=== PATIENT | male | born 1985 | race Caucasian/White ===

== ENCOUNTER 2017-07-13 08:23 | Inpatient (IN) | payer MEDICAID, OTHER ==
[~2017-07-13] VITALS: Ht 175.3 cm; Wt 83.0 kg
[2017-07-13 09:39] LABS: Urine WBC None Seen /hpf (0 - 3)
[2017-07-13 09:53] LABS: Basophils # (auto) 0.1 uL; Basophils % (auto) 0.3 % (0.0-2.0); Eosinophils # (auto) 0 uL; Eosinophils % (auto) 0.2 % (0.0-7.0); Hemoglobin 15.7 g/dL (13.5-17.5); Lymphocytes % (auto) 5.6 % (10.0-50.0); Mean Corpuscular Hemoglobin 30.6 pg (28.0-32.0); Mean Corpuscular Hgb Conc. 33.5 g/dL (32.0-36.0); Mean Corpuscular Volume 91.5 fL (80.0-100.0); Monocytes # (auto) 0.8 uL; Monocytes % (auto) 4.7 % (0.0-12.0); Neutrophils # (auto) 15.4 uL; Neutrophils % (auto) 89.2 % (37.0-80.0); Nucleated Red Blood Cells % 0.1 %; Platelet Count (auto) 250 10^3/uL (140-450); Red Blood Cells 5.13 10^6/uL (4.5-5.90); Red Cell Distribution Width 14.4 % (11.8-14.3); White Blood Cell 17.3 10^3/uL (4.4-10.8)
[2017-07-13] MEDS ORDERED: SODIUM CHLORIDE 0.9% 1,000 ML IVB ONE (09:57)
[2017-07-13] MEDS ORDERED: MORPHINE SULFATE 4 MG/ML SYR/VIAL IV PRN ×4 (10:00→13:30)
[2017-07-13] MEDS ORDERED: DONNATAL 5ml ORAL Elix (BELLADONNA ALK-PHENOBARB) PO ONE (10:00)
[2017-07-13] MEDS ORDERED: PROMETHAZINE HCL 25 MG/ML 1ML IV PRN ×2 (10:00→12:30)
[2017-07-13] MEDS ORDERED: FAMOTIDINE 20 MG TAB PO ONE (10:00)
[2017-07-13] MEDS ORDERED: ALUM & MAG HYDROX-SIMETH LIQ(MAALOX) 30 ML PO ONE (10:00)
[2017-07-13 10:06] LABS: Urine Amorphous Crystal FEW /hpf (None Seen); Urine Bacteria NONE SEEN /hpf (None Seen); Urine Blood Negative /uL (Negative); Urine Mucus FEW (None Seen); Urine Specific Gravity 1.039 (1.001-1.035)
[2017-07-13 10:10] LABS: Albumin 3.9 g/dL (3.4-5.0); BUN/Creatinine Ratio 11.2; Bilirubin, Total 0.7 mg/dL (0.2-1.0); Calcium 10.2 mg/dL (8.5-10.1); Potassium 3.3 mmol/L (3.5-5.1); Total Protein 8.7 g/dL (6.4-8.2)
[2017-07-13] MEDS: THIAMINE INJ 100 MG, MULTIPLE VITAMIN 10 ML, FOLIC ACID 1 MG, MAGNESIUM SULF SDV 50% 8 ... IV SCH ×5 (11:01)
[2017-07-13] MEDS ORDERED: POTASSIUM CHL 10% (20 MEQ/15ML) 15ml ORAL SOLN PO ONE (12:00)
[2017-07-13 12:09] LABS: Amphetamine Screen, Urine NEGATIVE (NEGATIVE); Barbiturate Scree,Urine NEGATIVE (NEGATIVE); Benzodiazephine Screen, Urine NEGATIVE (NEGATIVE); Cannabinoid Screen, Urine POSITIVE (NEGATIVE); Cocaine Screen, Urine NEGATIVE (NEGATIVE); Opiate Scree,Urine NEGATIVE (NEGATIVE); Phencyclidine Screen, Urine NEGATIVE (NEGATIVE)
[2017-07-13] MEDS ORDERED: MEPERIDINE HCL (50 MG/ML) 1 ML VIAL IV PRN (12:30)
[2017-07-13] MEDS ORDERED: THIAMINE 100mg/ml INJ (200mg/2ml VIAL) IV ONE (13:30)
[2017-07-13] MEDS ORDERED: DEXTROSE (50%) 50ML SYRG IV PRN (13:30)
[2017-07-13] MEDS ORDERED: NITROGLYCERIN 0.4 MG SL TAB SL PRN (13:30)
[2017-07-13] MEDS: SODIUM CHLORIDE 0.9% 1,000 ML IV SCH ×3 (13:40→23:46)
[2017-07-13] MEDS: HYDROmorphone HCL 2 MG/ML VL IV PRN ×3 (13:55→21:47)
[2017-07-13] MEDS: metroNIDAZOLE 500MG/100ML 100 ML IV SCH ×2 (14:24→21:47)
[2017-07-13] MEDS: POTASSIUM CHL 20MEQ/100ML 100 ML IV SCH ×3 (15:09→18:32)
[2017-07-13] MEDS: LORazepam 2MG/ML-1ML VIAL IV PRN ×2 (15:34→18:32)
[2017-07-13] MEDS: PROMETHAZINE HCL 25 MG/ML 1ML IV PRN ×2 (17:47→21:48)
[2017-07-13] MEDS: InsuLIN REG 1unit/0.01ml Soln (100units/ml) SC SCH ×2 (18:00→23:45)
[2017-07-13 18:20] VITALS: BP 146/69
[2017-07-13] MEDS: ACCU-CHEK COMFORT CURVE STRIP VI SCH ×2 (18:32→23:45)
[2017-07-13 20:57] VITALS: BP 146/69
[2017-07-13] MEDS ORDERED: METH10T PO (20:58)
[2017-07-13] MEDS: FAMOTIDINE (10MG/ML) 2ML VL IV SCH (21:47)
[2017-07-14] MEDS: HYDROmorphone HCL 2 MG/ML VL IV PRN ×3 (02:46→20:49)
[2017-07-14 05:06] VITALS: BP 144/91
[2017-07-14] MEDS: metroNIDAZOLE 500MG/100ML 100 ML IV SCH (05:35)
[2017-07-14] MEDS: InsuLIN REG 1unit/0.01ml Soln (100units/ml) SC SCH ×4 (05:37→23:32)
[2017-07-14] MEDS: ACCU-CHEK COMFORT CURVE STRIP VI SCH ×4 (05:37→23:32)
[2017-07-14 06:09] LABS: Basophils # (auto) 0 uL; Basophils % (auto) 0.1 % (0.0-2.0); Eosinophils # (auto) 0.1 uL; Eosinophils % (auto) 0.7 % (0.0-7.0); Hematocrit 40.9 % (41.0-53.0); Hemoglobin 13.9 g/dL (13.5-17.5); Lymphocytes # (auto) 1.1 uL; Lymphocytes % (auto) 10.9 % (10.0-50.0); Mean Corpuscular Hemoglobin 31.8 pg (28.0-32.0); Mean Corpuscular Volume 93.3 fL (80.0-100.0); Monocytes # (auto) 0.7 uL; Monocytes % (auto) 7.6 % (0.0-12.0); Neutrophils # (auto) 7.8 uL; Neutrophils % (auto) 80.7 % (37.0-80.0); Nucleated Red Blood Cells % 0.1 %; Platelet Count (auto) 141 10^3/uL (140-450); Red Blood Cells 4.38 10^6/uL (4.5-5.90); Red Cell Distribution Width 15.1 % (11.8-14.3); White Blood Cell 9.7 10^3/uL (4.4-10.8)
[2017-07-14] MEDS: SODIUM CHLORIDE 0.9% 1,000 ML IV SCH ×3 (06:18→22:38)
[2017-07-14 06:20] LABS: Albumin 2.9 g/dL (3.4-5.0); BUN/Creatinine Ratio 9.6; Bilirubin, Total 0.7 mg/dL (0.2-1.0); Calcium 8.3 mg/dL (8.5-10.1); Potassium 3.9 mmol/L (3.5-5.1); Total Protein 6.6 g/dL (6.4-8.2)
[2017-07-14 07:43] VITALS: BP 152/80
[2017-07-14] MEDS ORDERED: cefTRIAXone 1GM/10ml IVPUSH 10 ML IV SCH (09:00)
[2017-07-14] MEDS: THIAMINE 100mg/ml INJ (200mg/2ml VIAL) IV SCH (09:25)
[2017-07-14] MEDS: FAMOTIDINE (10MG/ML) 2ML VL IV SCH ×2 (09:26→21:45)
[2017-07-14] MEDS: PARoxetine 20 MG TAB PO SCH (11:21)
[2017-07-14] MEDS: chlordiazePOXIDE HCL 25 MG CAP PO SCH ×2 (11:21→21:45)
[2017-07-14 11:24] VITALS: BP 158/90
[2017-07-14] MEDS: METHADONE HCL 10 MG TAB PO SCH (12:06)
[2017-07-14] MEDS: THIAMINE INJ 100 MG, MULTIPLE VITAMIN 10 ML, FOLIC ACID 1 MG, MAGNESIUM SULF SDV 50% 8 ... IV SCH ×5 (12:06)
[2017-07-14] MEDS ORDERED: ANGIOMAX 250 MG VIAL IV ONE (15:19)
[2017-07-14] MEDS ORDERED: fentaNYL CITRATE 100 MCG/2 ML VL ONE (15:19)
[2017-07-14] MEDS ORDERED: IOHEXOL 350 MG/ML 100ML IJ ONE (15:20)
[2017-07-14] MEDS ORDERED: MIDAZOLAM HCL 1MG/1ML-2 ML VIAL ONE (15:20)
[2017-07-14] MEDS ORDERED: LIDOCAINE 2%HCL (LOCAL ANESTH.) INJ 20ML MDV ONE (15:20)
[2017-07-14 17:26] VITALS: BP 154/92
[2017-07-14 21:46] VITALS: BP 168/92
[2017-07-14 22:36] VITALS: BP 137/92
[2017-07-15] MEDS: SODIUM CHLORIDE 0.9% 1,000 ML IV SCH ×3 (04:33→18:38)
[2017-07-15 04:51] VITALS: BP 154/85
[2017-07-15] MEDS: InsuLIN REG 1unit/0.01ml Soln (100units/ml) SC SCH ×3 (05:07→18:00)
[2017-07-15] MEDS: ACCU-CHEK COMFORT CURVE STRIP VI SCH ×3 (05:07→18:00)
[2017-07-15 06:43] LABS: Basophils # (auto) 0 uL; Basophils % (auto) 0.5 % (0.0-2.0); Eosinophils # (auto) 0.2 uL; Eosinophils % (auto) 1.9 % (0.0-7.0); Hemoglobin 13.3 g/dL (13.5-17.5); Lymphocytes # (auto) 1.5 uL; Mean Corpuscular Hemoglobin 31.8 pg (28.0-32.0); Mean Corpuscular Volume 93.6 fL (80.0-100.0); Monocytes # (auto) 0.8 uL; Monocytes % (auto) 8.9 % (0.0-12.0); Neutrophils # (auto) 6.8 uL; Neutrophils % (auto) 72.7 % (37.0-80.0); Nucleated Red Blood Cells % 0.1 %; Platelet Count (auto) 133 10^3/uL (140-450); Red Blood Cells 4.17 10^6/uL (4.5-5.90); Red Cell Distribution Width 14.6 % (11.8-14.3); White Blood Cell 9.3 10^3/uL (4.4-10.8)
[2017-07-15 07:01] LABS: Potassium 3.6 mmol/L (3.5-5.1)
[2017-07-15 07:17] LABS: BUN/Creatinine Ratio 10.3; Calcium 8.5 mg/dL (8.5-10.1)
[2017-07-15 08:00] VITALS: BP 165/86
[2017-07-15] MEDS: HYDROmorphone HCL 2 MG/ML VL IV PRN (08:44)
[2017-07-15 08:51] VITALS: BP 165/86
[2017-07-15] MEDS: chlordiazePOXIDE HCL 25 MG CAP PO SCH ×2 (10:13→21:36)
[2017-07-15] MEDS: METHADONE HCL 10 MG TAB PO SCH (10:13)
[2017-07-15] MEDS: PARoxetine 20 MG TAB PO SCH (10:14)
[2017-07-15] MEDS: THIAMINE 100mg/ml INJ (200mg/2ml VIAL) IV SCH (10:19)
[2017-07-15] MEDS: FAMOTIDINE (10MG/ML) 2ML VL IV SCH ×2 (10:19→21:36)
[2017-07-15] MEDS: THIAMINE INJ 100 MG, MULTIPLE VITAMIN 10 ML, FOLIC ACID 1 MG, MAGNESIUM SULF SDV 50% 8 ... IV SCH ×5 (13:02)
[2017-07-15] MEDS ORDERED: chlordiazePOXIDE HCL 25 MG CAP PO SCH (14:00)
[2017-07-15 16:56] VITALS: BP 128/70
[2017-07-15] MEDS ORDERED: MORPHINE SULFATE 8mg/ml INJ SDV IV PRN ×2 (17:00)
[2017-07-15 21:45] VITALS: BP 147/85
[2017-07-16] VITALS (8 sets, daily range): BP systolic 101–151; BP diastolic 63–98
[2017-07-16] MEDS: SODIUM CHLORIDE 0.9% 1,000 ML IV SCH ×4 (00:22→21:02)
[2017-07-16] MEDS: ACCU-CHEK COMFORT CURVE STRIP VI SCH ×4 (00:22→17:29)
[2017-07-16] MEDS: chlordiazePOXIDE HCL 25 MG CAP PO SCH ×3 (06:00→22:10)
[2017-07-16] MEDS: InsuLIN REG 1unit/0.01ml Soln (100units/ml) SC SCH ×4 (06:00→17:30)
[2017-07-16 06:01] LABS: Basophils # (auto) 0 uL; Basophils % (auto) 0.6 % (0.0-2.0); Eosinophils # (auto) 0.2 uL; Eosinophils % (auto) 3.4 % (0.0-7.0); Hematocrit 35.8 % (41.0-53.0); Hemoglobin 12.1 g/dL (13.5-17.5); Lymphocytes # (auto) 1.3 uL; Lymphocytes % (auto) 21.7 % (10.0-50.0); Mean Corpuscular Hemoglobin 31.6 pg (28.0-32.0); Mean Corpuscular Hgb Conc. 33.6 g/dL (32.0-36.0); Monocytes # (auto) 0.6 uL; Monocytes % (auto) 9.1 % (0.0-12.0); Neutrophils % (auto) 65.2 % (37.0-80.0); Nucleated Red Blood Cells % 0.1 %; Platelet Count (auto) 126 10^3/uL (140-450); Red Blood Cells 3.81 10^6/uL (4.5-5.90); Red Cell Distribution Width 14.9 % (11.8-14.3); White Blood Cell 6.2 10^3/uL (4.4-10.8)
[2017-07-16 06:31] LABS: Calcium 8.3 mg/dL (8.5-10.1); Potassium 3.4 mmol/L (3.5-5.1)
[2017-07-16] MEDS ORDERED: POTASSIUM CHL 20 Meq TABLET PO ONE (08:30)
[2017-07-16] MEDS: METHADONE HCL 10 MG TAB PO SCH (09:42)
[2017-07-16] MEDS: PARoxetine 20 MG TAB PO SCH (09:42)
[2017-07-16] MEDS: THIAMINE 100mg/ml INJ (200mg/2ml VIAL) IV SCH (09:43)
[2017-07-16] MEDS: FAMOTIDINE (10MG/ML) 2ML VL IV SCH ×2 (09:43→22:10)
[2017-07-16] MEDS: THIAMINE INJ 100 MG, MULTIPLE VITAMIN 10 ML, FOLIC ACID 1 MG, MAGNESIUM SULF SDV 50% 8 ... IV SCH ×5 (12:35)
[2017-07-17] VITALS (7 sets, daily range): BP systolic 136–158; BP diastolic 74–99
[2017-07-17] MEDS: ACCU-CHEK COMFORT CURVE STRIP VI SCH ×4 (00:14→17:14)
[2017-07-17] MEDS: SODIUM CHLORIDE 0.9% 1,000 ML IV SCH ×4 (04:13→22:44)
[2017-07-17] MEDS: InsuLIN REG 1unit/0.01ml Soln (100units/ml) SC SCH ×4 (06:00→17:14)
[2017-07-17 06:03] LABS: Basophils # (auto) 0.1 uL; Basophils % (auto) 0.9 % (0.0-2.0); Eosinophils # (auto) 0.2 uL; Eosinophils % (auto) 3.6 % (0.0-7.0); Hematocrit 38.8 % (41.0-53.0); Hemoglobin 12.8 g/dL (13.5-17.5); Lymphocytes # (auto) 1.2 uL; Lymphocytes % (auto) 21.3 % (10.0-50.0); Mean Corpuscular Hemoglobin 30.9 pg (28.0-32.0); Mean Corpuscular Hgb Conc. 32.9 g/dL (32.0-36.0); Mean Corpuscular Volume 93.9 fL (80.0-100.0); Monocytes # (auto) 0.5 uL; Monocytes % (auto) 9.1 % (0.0-12.0); Neutrophils # (auto) 3.8 uL; Neutrophils % (auto) 65.1 % (37.0-80.0); Nucleated Red Blood Cells % 0.1 %; Platelet Count (auto) 168 10^3/uL (140-450); Red Blood Cells 4.14 10^6/uL (4.5-5.90); Red Cell Distribution Width 14.8 % (11.8-14.3); White Blood Cell 5.9 10^3/uL (4.4-10.8)
[2017-07-17 06:23] LABS: BUN/Creatinine Ratio 5.1; Calcium 8.7 mg/dL (8.5-10.1); Potassium 3.8 mmol/L (3.5-5.1)
[2017-07-17 06:51] LABS: Albumin 2.9 g/dL (3.4-5.0); Bilirubin, Direct 0.2 mg/dL (0-0.2); Bilirubin, Total 0.4 mg/dL (0.2-1.0); Magnesium 2.4 mg/dL (1.6-2.6); Total Protein 6.9 g/dL (6.4-8.2)
[2017-07-17] MEDS: FAMOTIDINE (10MG/ML) 2ML VL IV SCH ×2 (09:24→22:44)
[2017-07-17] MEDS: THIAMINE 100mg/ml INJ (200mg/2ml VIAL) IV SCH (09:24)
[2017-07-17] MEDS: PARoxetine 20 MG TAB PO SCH (09:25)
[2017-07-17] MEDS: chlordiazePOXIDE HCL 25 MG CAP PO SCH (09:25)
[2017-07-17] MEDS: METHADONE HCL 10 MG TAB PO SCH (09:26)
[2017-07-17] MEDS: THIAMINE INJ 100 MG, MULTIPLE VITAMIN 10 ML, FOLIC ACID 1 MG, MAGNESIUM SULF SDV 50% 8 ... IV SCH ×5 (11:44)
[2017-07-17] MEDS: LORazepam 2MG/ML-1ML VIAL IV PRN (22:10)
[2017-07-17] MEDS: HYDROmorphone HCL 2 MG/ML VL IV PRN (22:46)
[2017-07-18 04:57] VITALS: BP 145/81
[2017-07-18 05:53] LABS: Basophils # (auto) 0 uL; Basophils % (auto) 0.8 % (0.0-2.0); Eosinophils # (auto) 0.2 uL; Eosinophils % (auto) 3.7 % (0.0-7.0); Hematocrit 36.1 % (41.0-53.0); Hemoglobin 12.3 g/dL (13.5-17.5); Lymphocytes % (auto) 21.2 % (10.0-50.0); Mean Corpuscular Hemoglobin 31.8 pg (28.0-32.0); Mean Corpuscular Hgb Conc. 34.1 g/dL (32.0-36.0); Mean Corpuscular Volume 93.3 fL (80.0-100.0); Monocytes # (auto) 0.6 uL; Monocytes % (auto) 12.7 % (0.0-12.0); Neutrophils % (auto) 61.6 % (37.0-80.0); Platelet Count (auto) 185 10^3/uL (140-450); Red Blood Cells 3.88 10^6/uL (4.5-5.90); Red Cell Distribution Width 14.5 % (11.8-14.3); White Blood Cell 4.9 10^3/uL (4.4-10.8)
[2017-07-18] MEDS: InsuLIN REG 1unit/0.01ml Soln (100units/ml) SC SCH ×2 (06:00)
[2017-07-18] MEDS: ACCU-CHEK COMFORT CURVE STRIP VI SCH ×2 (06:00)
[2017-07-18 06:13] LABS: BUN/Creatinine Ratio 5.6; Calcium 8.7 mg/dL (8.5-10.1); Potassium 4.1 mmol/L (3.5-5.1)
[2017-07-18] MEDS: SODIUM CHLORIDE 0.9% 1,000 ML IV SCH ×2 (08:08→13:20)
[2017-07-18 09:00] VITALS: BP 144/96
[2017-07-18] MEDS: PARoxetine 20 MG TAB PO SCH (09:57)
[2017-07-18] MEDS: THIAMINE 100mg/ml INJ (200mg/2ml VIAL) IV SCH (09:57)
[2017-07-18] MEDS: FAMOTIDINE (10MG/ML) 2ML VL IV SCH (09:57)
[2017-07-18] MEDS: METHADONE HCL 10 MG TAB PO SCH (09:57)
[2017-07-18 13:00] VITALS: BP 138/78
== END 2017-07-18 14:49 | disposition home or self-care (01) | DRG 282 ==
LOC: ER 08:23 → TELE 08:24 → TELE-EAST 18:16 → EAST 07-18 11:28
PROVIDERS: ADMIT Internal Medicine; ATTEND Internal Medicine
DX: K85.20 Alcohol induced acute pancreatitis without necrosis or infection (principal); R65.10 Systemic inflammatory response syndrome (SIRS) of non-infectious origin without acute organ dysfunction; E83.52 Hypercalcemia; E87.6 Hypokalemia; E44.1 Mild protein-calorie malnutrition; Z68.27 Body mass index [BMI] 27.0-27.9, adult; F10.10 Alcohol abuse, uncomplicated; E66.3 Overweight; F41.9 Anxiety disorder, unspecified; I10 Essential (primary) hypertension; R73.9 Hyperglycemia, unspecified
CPT/HCPCS: 36415; 71046; 74176; 80048; 80053; 80061; 80076; 80307; 81001; 82150; 82962; 83036; 83690; 83735; 85025; 93005; 94761; 96361; 96365; 96375; J2250; J3480; J3490